=== PATIENT | male | born 1985 | race Caucasian/White ===

== ENCOUNTER 2016-11-24 20:24 | Emergency (ER) | payer MEDICAID ==
[2016-11-24 21:17] VITALS: BP 130/78
== END 2016-11-24 21:17 | disposition other institution (70) ==
LOC: ED 20:24
DX: L02.416 Cutaneous abscess of left lower limb (principal); F19.10 Other psychoactive substance abuse, uncomplicated
CPT/HCPCS: J2001

== ENCOUNTER 2016-11-24 20:24 | Emergency (ER) | payer OTHER | END 2016-11-24 21:17 | disposition other institution (70) | LOC: ED 20:24 | DX: Z02.89 Encounter for other administrative examinations (principal) ==

== ENCOUNTER 2017-05-05 10:01 | Emergency (ER) | payer MEDICAID ==
[~2017-05-05] VITALS: Ht 177.8 cm; Wt 86.2 kg
[2017-05-05 12:43] VITALS: BP 141/72
== END 2017-05-05 12:43 | disposition home or self-care (01) ==
LOC: ED 10:01
DX: S82.301B Unspecified fracture of lower end of right tibia, initial encounter for open fracture type I or II (principal); F17.210 Nicotine dependence, cigarettes, uncomplicated; W22.8XXA Striking against or struck by other objects, initial encounter; Y93.55 Activity, bike riding; Y92.488 Other paved roadways as the place of occurrence of the external cause; Y99.8 Other external cause status
CPT/HCPCS: J0690; J1885; J2001; J3010

== ENCOUNTER 2018-04-20 08:52 | Emergency (ER) | payer OTHER ==
[~2018-04-20] VITALS: Ht 177.8 cm; Wt 88.5 kg
[2018-04-20 09:03] VITALS: Ht 177.8 cm; Wt 88.5 kg
[2018-04-20 09:43] VITALS: BP 135/74
== END 2018-04-20 09:44 | disposition home or self-care (01) ==
LOC: ED 08:52
DX: L03.116 Cellulitis of left lower limb (principal); L03.115 Cellulitis of right lower limb; F17.210 Nicotine dependence, cigarettes, uncomplicated; Z86.19 Personal history of other infectious and parasitic diseases

== ENCOUNTER 2019-06-14 18:00 | Emergency (ER) | payer OTHER ==
[~2019-06-14] VITALS: Ht 182.9 cm; Wt 98.0 kg
[2019-06-14 18:12] VITALS: Ht 182.9 cm; Wt 98.0 kg
[2019-06-14 21:12] VITALS: BP 143/85
== END 2019-06-14 21:12 | disposition home or self-care (01) ==
LOC: ED 18:00
DX: H10.31 Unspecified acute conjunctivitis, right eye (principal); Z86.19 Personal history of other infectious and parasitic diseases